=== PATIENT | female | born 1995 | race Caucasian/White ===

== ENCOUNTER 2019-09-24 16:49 | Emergency (ER) | payer MEDICAID, SELFPAY ==
[2019-09-24 16:53] VITALS: BP 134/101; PULSE 97; RESP 18; TEMP 37.3; O2SAT 97
--- NOTE | 2019-09-24 18:01 | ED.HA ---
HPI - Headache General Chief Complaint: Headache Stated Complaint: headache Time Seen by Provider: 09/24/19 17:36 Source: patient Mode of arrival: ambulatory Limitations: no limitations History of Present Illness HPI Narrative: This patient is a 24 year old female who presents for evaluation of migraine headache. Patient developed headache that is located posterior and around forehead. She describes her pain has pressure. She has associated nausea and vomiting with this headache. She reports history of migraines and this is similar to previous migraine headaches. She states she was seen at [facility] last night, and she was given toradol. She states the toradol decreased her pain to a 4/10. Her pain currently is 8/10. She denies blurred vision today. MD elicited complaint: migraine Related Data Allergies Allergy/AdvReac Type Severity Reaction Status Date / Time No Known Allergies Allergy Verified 09/24/19 16:58 Review of Systems Review of Systems: All systems reviewed & are unremarkable except as noted in HPI and below Constitutional: Constitutional: Denies chills, Denies fever(s) and Denies weakness Eyes: Eyes: Denies blurry vision and Reports photophobia ENT: Reports nasal congestion Gastrointestinal: Gastrointestinal: Denies abdominal pain, Reports nausea and Reports vomiting Neurologic: Denies vertigo, Denies syncope, Reports headache(s), Denies focal weakness and Denies numbness PMFSH Past Medical History Medical History (Updated 09/24/19 @ 19:32 by Jacqueline Alberto MD) Patient denies medical problems Surgical History Surgical History (Updated 09/24/19 @ 18:03 by Jacqueline Alberto MD) No significant past surgical history Social History Social History (Updated 09/24/19 @ 18:03 by Jacqueline Alberto MD) Smoking status: Never smoker Alcohol intake: never Substance use type: marijuana Gender identity (if verbalized by the patient): Female Exam Narrative: Exam Narrative: GENERAL: Well-appearing, well-nourished, and in no acute distress. HEAD: Normocephalic, atraumatic EYES: PERRLA and EOMI, conjunctiva clear without discharge EARS: TM's clear bilaterally without erythema or dullness NOSE: Nares clear, no rhinorrhea or epistaxis THROAT:Mucous membranes moist, Oropharynx normal without erythema, exudate, peritonsillar swelling or fluctuance NECK: Supple, without lymphadenopathy or mass RESPIRATORY: No respiratory distress, Airway patent, Respirations non-labored, Clear to auscultation without rales, rhonchi or wheeze HEART: Regular rate and rhythm. No murmur heard. Normal peripheral pulses. ABDOMEN: Soft, nontender, nondistended, normal active bowel sounds. No masses. No rebound or guarding, No organomegaly. EXTREMITIES: No edema, normal strength with full range of motion. SKIN: Warm, dry, normal color without rash NEURO: Alert and oriented x3. CN 2-12 grossly intact. No focal deficits. PSYCH: Normal mood and affect. Course Reevaluation(s) Reevaluation #1: Patient states she feels much better. She states headache is typical for her migraines. She has no meningeal signs, fever. Seems unlikely to to be SAH, meningitis. Date: 09/24/19 Time: 19:31 Vital Signs Vital signs: Vital Signs Temperature 99.2 F 09/24/19 16:53 Pulse Rate 97 09/24/19 16:53 Respiratory Rate 18 09/24/19 16:53 Blood Pressure 134/101 H 09/24/19 16:53 Pulse Oximetry 97 09/24/19 16:53 Temperature 99.2 F 09/24/19 16:53 Pulse Rate 78 09/24/19 19:11 Respiratory Rate 16 09/24/19 19:11 Blood Pressure 145/75 H 09/24/19 19:11 Pulse Oximetry 100 09/24/19 19:11 Discharge Plan Discharge Clinical Impression: Tension headache Patient Disposition: Home, Self-Care Condition: Stable Instructions: Antibiotic Form Additional Instructions: Please stay hydrated and follow up with your primary care physician. Prescriptions: New ketorolac 10 mg tablet
[2019-09-24] MEDS: LACTATED RINGERS 1,000 ML 999 ML IV CONT (18:08)
[2019-09-24] MEDS: KETOROLAC 30 MG/ML VIAL (*BKC) IV PUSH (18:09)
[2019-09-24] MEDS: METOCLOPRAMIDE HCL INJ 10 MG/2 ML VIAL IV PUSH (18:09)
[2019-09-24 18:33] VITALS: BP 140/89; PULSE 78; RESP 16; O2SAT 100
[2019-09-24 19:11] VITALS: BP 145/75; PULSE 78; RESP 16; O2SAT 100
--- NOTE | 2019-09-24 19:18 | PC.NURSE ---
PT REPORT GIVEN TO LULI LYNN. SHE HAS ASSUMED PT CARE.
[2019-09-24 19:59] VITALS: BP 121/76; PULSE 83; RESP 16; TEMP 37.1; O2SAT 100
== END 2019-09-24 20:00 | disposition home or self-care (01) ==
PROVIDERS: Emergency Provider General Practice
DX: G44.209 Tension-type headache, unspecified, not intractable (principal)
CPT/HCPCS: 96361; 96374; 96375; 99284; J1200; J1885; J2765; J7120